=== PATIENT | male | born 1940 | race Two or more races ===

== ENCOUNTER 2025-03-17 19:34 | Emergency (ER) | payer MEDICARE, MEDICAID ==
[~2025-03-17] VITALS: Ht 167.6 cm; Wt 69.9 kg
[2025-03-17 20:00] LABS: PLATELET COUNT (AUTO) 215 K/uL (150-450); RED BLOOD CELL COUNT(AUTO) 4.71 MIL/uL (4.5-6.0); RED CELL DISTRIBUTION WIDTH 14.9 % (11.5-15.0); WHITE BLOOD COUNT (AUTO) 5.7 K/uL (4.3-11.0)
[2025-03-17 20:07] LABS: CALCIUM, SERUM 9.2 mg/dL (8.5-10.1); CREATININE 1.5 mg/dL (0.6-1.3); SODIUM SERUM 147 mmol/L (136-145); UREA NITROGEN, BLOOD 53 mg/dL (7-18)
[2025-03-17 20:11] LABS: INR 1.04 (0.91-1.10)
[2025-03-17] MEDS: IV NS 0.9% 1,000 ML BAG IV ONE (20:48)
[2025-03-17 22:29] VITALS: BP 119/71; TEMP 97.9; O2SAT 97
== END 2025-03-17 22:45 | disposition home or self-care (01) ==
LOC: ER 19:37
DX: E86.0 Dehydration (principal); E87.5 Hyperkalemia; E87.0 Hyperosmolality and hypernatremia; I10 Essential (primary) hypertension; Z86.2 Personal history of diseases of the blood and blood-forming organs and certain disorders involving the immune mechanism
CPT/HCPCS: 99285; 96360; 71045; 96361; 93005; 85025; 80048; 36415; 85730; 82962; J7030